=== PATIENT | male | born 1975 | race Caucasian/White ===

== ENCOUNTER 2016-06-30 11:58 | Emergency (ER) | payer SELFPAY ==
[2016-06-30 12:17] VITALS: TEMP 98.6
--- NOTE | 2016-06-30 13:11 | EDPHY ---
H & P Time Seen by Provider: 06/30/16 12:13 HPI/ROS: CHIEF COMPLAINT: right middle finger pain HISTORY OF PRESENT ILLNESS: 40-year-old otherwise healthy male presents emergency department with a laceration and pain to his right middle finger. Patient is [id number], a heavy generator fell onto his hand pinning his hand to the pavement. Patient has a laceration to the palmar aspect of his middle finger. He reports pain with range of motion and tingling to the dorsal aspect of his hand. He denies other complaints. Tetanus is up-to-date. Smoking Status: Never smoked Physical Exam: GEN: Awake, alert, oriented, no acute distress RESP: nl resp effort MSK: Right middle finger with full extension, flexion at MCP joint and DIP joint normal, flexion at PIP joint limited due to swelling. 2 point discrimination in tact, cap refill less than 2 seconds. SKIN: right middle finger with 1.5cm laceration to trevizo aspect just proximal to PIP joint, tendon visualized, no laceration Constitutional: Initial Vital Signs Temperature (C) 37 C 06/30/16 12:12 Heart Rate 72 06/30/16 12:12 Respiratory Rate 18 06/30/16 12:12 Blood Pressure 136/82 H 06/30/16 12:12 O2 Sat (%) 98 06/30/16 12:12 O2 Delivery Mode Room Air Allergies/Adverse Reactions: No Known Allergies Allergy (Unverified 06/30/16 12:11) Home Medications: Medication Instructions Recorded Cephalexin [Keflex] 500 mg PO QID 5 Days 06/30/16 MDM/Departure - MDM Diagnostics: Right hand x-ray independently reviewed by me- Findings: No fracture identified. Normal alignment. Joint spaces are maintained. No radiopaque foreign object. Impression: Negative right hand radiographs. Dictated By: Frank Cooney MD Procedures: Procedure: Laceration repair. Verbal consent was obtained from the patient. The 1.5 cm laceration on the right middle finger was anesthetized using digital block using 1% lidocaine without epinephrine vitals. The wound was carefully irrigated by the emergency department central supply technician. Next, the wound was prepped and draped in sterile fashion and explored to its base with a gloved finger. There were no deep structures involved. No tendon injury was identified. No vascular injury was identified. No foreign bodies were identified. The wound was repaired with 5.0 Prolene, 10 simple interrupted sutures. The wound repair was simple. The procedure was performed by myself. Tetanus and antibiotic status were addressed. - Depart Disposition: Home, Routine, Self-Care Clinical Impression: Laceration of right middle finger Crushing injury of right middle finger Qualifiers: Encounter type: initial encounter Qualified Code(s): S67.192A - Crushing injury of right middle finger, initial encounter Condition: Good Instructions: Finger Laceration (ED), Crush Injury (ED) Additional Instructions: Return to the emergency department in 12-14 days for suture removal, return sooner for any signs of infection. Follow up with the hand doctor at 1st available appointment. Keep dressing on, clean and dry with splint in place for 72 hours, you may then remove the dressing, wash her hands with soap and water, put splint back on and keep splint on until he return for suture removal. Regrese al departamento de emergencias en 12-14 constantino para remover las suturas, regrese antes por cualquier senal de infeccion. Arron un seguimiento con el doctor de la mano en la primera alejandra disponible. Mantenga el vendaje puesto, limpio y seco con la tablilla en lugar por 72 horas, usted puede quitarse el vendaje, lavese las elvin con agua y jabon, pongase de nuevo la tablilla y mantengala puesta hasta que le remuevan las suturas. Prescriptions: Cephalexin [Keflex] 500 mg PO QID 5 Days Referrals: Jonathan Patiño MD [Medical Doctor] - As per Instructions (Hand doctor parcel contractor) Print Language: French
[2016-06-30 14:55] VITALS: BP 128/77; PULSE 81; RESP 16; O2SAT 95
== END 2016-06-30 14:55 | disposition home or self-care (01) ==
PROC: 0HQFXZZ Repair Right Hand Skin, External Approach (ICD-10-PCS; principal; 2016-06-30)
DX: S61.222A Laceration with foreign body of right middle finger without damage to nail, initial encounter (principal); W20.8XXA Other cause of strike by thrown, projected or falling object, initial encounter; Y92.480 Sidewalk as the place of occurrence of the external cause; Y99.8 Other external cause status
CPT/HCPCS: L3925